=== PATIENT | female | born 1980 | race Caucasian/White ===

== ENCOUNTER → 2017-11-16 | Day surgery (SDC) | payer OTHER ==
[~2017-11-16] VITALS: Ht 165.1 cm; Wt 86.0 kg
[~2017-11-16] MED LIST: ACETAMINOPHEN 1000 MG/100 ML 100 ML IV ONE; AZIT250T3 PO; BUPIVACAINE/EPINEPHRINE 0.25% 50 ML VIAL ONE; CHLORHEXIDINE GLUCONATE 2 % 1 PACK (2 CLOTHS) TOPICAL PRN; FAMOTIDINE 20 MG/2 ML VIAL ONE; HYDROmorphone HCL PF 0.5 MG/0.5 ML SYRINGE ONE; LACTATED RINGER'S 1000 ML IV PRN; LEVO-243 PO; LIDOCAINE 1%/EPINEPHrine 1:100,000 SOLN 30 ML VIAL ONE; LORT5TAB PO; METOPROLOL TARTRATE 25 MG TAB PO PRN; MIDAZOLAM HCL 2 MG/2 ML VIAL ONE; MORPHINE SULFATE 4 MG/ML INJ ONE; PANT40TA3 PO; POVIDONE IODINE 5% (ANTISEPSIS KIT) 4 APPLICATIONS EACH NARE PRN; PREN0.01 PO; SERT-129 PO; SODIUM CHLORID 0.9% 500 ML IV PRN; VANCOMYCIN 500 MG/NS 100 ML IV ONE; diphenhydrAMINE HCL 50 MG/ML VIAL ONE
[2017-11-16] MEDS: ACETAMINOPHEN 1000 MG/100 ML 100 ML IV SCH ×2 (07:28→08:18)
[2017-11-16 09:35] VITALS: PULSE 106
--- NOTE | 2017-11-16 09:46 | PD.OP ---
cc: Noah Dye MD Operative Report Date of Surgery: Nov 16, 2017 Preoperative Diagnosis: Chronic cholecystitis and cholelithiasis Postoperative Diagnosis: Chronic cholecystitis and cholelithiasis Procedure: Laparoscopic cholecystectomy Anesthesia: Gen. endotracheal Surgeon: Noah Dye Gps Field Data Collector(s): Jenifer Lindsey, MS 3 Operation and Findings: Operative findings: The patient was found to have a mildly, chronically diseased -appearing gallbladder which was minimally thick-walled. It had large stones within its lumen. The cystic duct and common bile duct were seen to be of normal caliber. No other abnormalities were noted. Operative procedure: The patient was brought to the operating room and after satisfactory general endotracheal anesthesia was obtained, the abdomen was prepped and draped in the usual sterile fashion. 0.5% Marcaine with epinephrine was used to infiltrate the skin for local anesthesia. A small incision was made just above the umbilicus and a 5 mm trocar was inserted into the peritoneal cavity under direct visualization. The abdomen was then distended to 15 mmHg using carbon dioxide after which the camera was reinserted and visceral injury inspected for, with none being identified. Under direct visualization a 12 port and a 5 port were placed in the upper midline. The fundus of the gallbladder was grasped retracted superiorly over the right lobe of the liver. Moya's pouch was then identified, grasped, and retracted inferiorly and laterally, placing tension on the hepatoduodenal ligament. The gallbladder was partially taken down near Moya's pouch to allow better visualization and the cystic artery was identified, dissected free bluntly and divided near structures with the gallbladder using the harmonic scalpel. It was later clipped for extra security. The cystic duct was then dissected free from from the surrounding structures and dissected down to its junction with the common bile duct which was visualized. The cystic duct was then controlled with hemoclips and divided near central the gallbladder with a Harmonic scalpel. The gallbladder was then dissected free from the liver bed using the harmonic scalpel. The gallbladder is placed within an Endo Catch bag and brought through the upper midline incision where it was withdrawn without problem. The liver bed was then inspected and found to be hemostatic. The cystic duct and cystic artery stumps were both inspected and found to be intact with no leakage of bile or blood. The carbon dioxide was vented as completely as possible the atmosphere after which the ports were removed and the skin closed with interrupted 4-0 PDS subcuticular stitches. Steri-Strips were applied and the patient was then awakened and taken from the operating room, in satisfactory condition, having tolerated the procedure without problem. ML's. The instrument, sponge, and needle counts were reported as being correct 2 at the end of the procedure. Noah Dye MD Nov 16, 2017 09:46
[2017-11-16 11:05] VITALS: BP 132/80; PULSE 98; RESP 16; TEMP 98; O2SAT 99
== END | disposition home or self-care (01) ==
LOC: PHSDC 06:06
PROVIDERS: ATTEND Surgery
DX: K80.10 Calculus of gallbladder with chronic cholecystitis without obstruction (principal)
CPT/HCPCS: 00790; 47562; 88304; J0131; J1170; J1200; J2250; J2270; J3010; J3370; J7120